=== PATIENT | male | born 1980 | race Caucasian/White ===

== ENCOUNTER 2016-03-03 16:43 | Emergency (ER) | payer OTHER ==
[2016-03-03 16:48] VITALS: BP 161/94
--- NOTE | 2016-03-03 17:13 | ED ---
Throat Pain/Nasal Congestion - HPI Summary HPI Summary: 35M w/ PMH of back pain presents with dental pain for 3 weeks. He has a dental fracture at 12. Today the tooth broke off and exposed the nerve and he has severe pain now. He denies any fever, swelling around the eyes, pain with eye movement, chest pain or SOB. He admits to pain with air movement. He took a tyenlol for his pain without relief. - History of Current Complaint Chief Complaint: EDDentalPain Time Seen by Provider: 03/03/16 16:51 - Allergies/Home Medications Allergies/Adverse Reactions: Allergies Allergy/AdvReac Type Severity Reaction Status Date / Time Prednisone Allergy Vomiting Verified 03/03/16 16:48 Ketorolac Tromethamine AdvReac Intermediate Vomiting Verified 03/03/16 16:48 [From Toradol] Tramadol AdvReac Intermediate Vomiting Verified 03/03/16 16:48 PMH/Surg Hx/FS Hx/Imm Hx Endocrine/Hematology History: Reports: Hx Diabetes Cardiovascular History: Reports: Other Cardiovascular Problems/Disorders - IDDM II Denies: Hx Congestive Heart Failure, Hx Hypertension, Hx Pacemaker/ICD Respiratory History: Reports: Hx Asthma, Hx Sleep Apnea - PER PT. NO WORKUP History: Denies: Hx Renal Disease Musculoskeletal History: Reports: Hx Back Problems, Other Musculoskeletal History - right knee problems Sensory History: Denies: Hx Contacts or Glasses, Hx Hearing Aid Opthamlomology History: Denies: Hx Contacts or Glasses Neurological History: Reports: Other Neuro Impairments/Disorders - LOW BACK PROBLEMS X MANY YEARS Psychiatric History: Denies: Hx Panic Disorder - Surgical History Surgery Procedure, Year, and Place: HX OF BROKEN RIGHT JAW,WIRED SHUT 2012; left shoulder rotator cuff Hx Anesthesia Reactions: No - Immunization History Date of Tetanus Vaccine: Unknown Date of Influenza Vaccine: unknown Infectious Disease History: No Infectious Disease History: Denies: Hx Clostridium Difficile, Hx Hepatitis, Hx Human Immunodeficiency Virus (HIV), Hx of Known/Suspected MRSA, Hx Shingles, Hx Tuberculosis, Hx Known/ Suspected VRE, Hx Known/Suspected VRSA, History Other Infectious Disease, Traveled Outside the [place] in Last 30 Days - Family History Known Family History: Positive: Diabetes, Other - [place] - Social History Alcohol Use: Rare Alcohol Amount: pt reports tonight was first time drinking in a month Hx Substance Use: Yes Substance Use Type: Reports: Marijuana Substance Use Comment - Amount & Last Used: daily Hx Tobacco Use: Yes Smoking Status (MU): Heavy Every Day Tobacco Smoker Type: Cigarettes Amount Used/How Often: 1 ppd Length of Time of Smoking/Using Tobacco: 15 YRS Have You Smoked in the Last Year: Yes Review of Systems Negative: Fever Positive: Dental Pain Negative: Chest Pain Negative: Shortness Of Breath All Other Systems Reviewed And Are Negative: Yes Physical Exam Triage Information Reviewed: Yes Vital Signs On Initial Exam: Initial Vitals Temp Pulse Resp BP Pulse Ox 98.8 F 82 20 161/94 98 03/03/16 16:44 03/03/16 16:44 03/03/16 16:44 03/03/16 16:44 03/03/16 16:44 Vital Signs Reviewed: Yes Appearance: Positive: Well-Appearing Skin: Positive: Warm, Dry Head/Face: Positive: Normal Head/Face Inspection Eyes: Positive: Normal, EOMI, GABRIEL, Conjunctiva Clear ENT: Positive: Normal ENT inspection, Pharynx normal, TMs normal Dental: Positive: Percussion Tenderness @ - 10, Dental Fracture @ - 10 Neck: Positive: Supple, Nontender, No Lymphadenopathy Respiratory/Lung Sounds: Positive: Clear to Auscultation, Breath Sounds Present Cardiovascular: Positive: Normal, RRR Procedures - Procedure Summary Procedure Summary: cleaned tooth, applied topical anaesthesia, placed cement into cracked tooth, tolerated procedure well Diagnostics - Vital Signs Vital Signs Temp Pulse Resp BP Pulse Ox 03/03/16 16:44 98.8 F 82 20 161/94 98 - Laboratory Lab Statement: Any lab studies that have been ordered have been reviewed, and results considered in the medical decision making process. EENT Course/Dx - Course Course Of Treatment: 35 M presents with dental fracture of 10. He had a previous fracture there but today he said a part broke off exposure the nerve. He has no evidence of infection, filled area with cement, placed on course of antibiotics, will have follow up with dentist, patient agrees with plan - Differential Diagnoses Differential Diagnoses: Dental Abscess, Dental Caries, Fractured Tooth - Diagnoses Provider Diagnoses: Pain, dental Discharge - Discharge Plan Condition: Good Disposition: HOME Prescriptions: Penicillin VK TAB* [Penicillin Vk Tab*] 500 mg PO QID #27 tab Patient Education Materials: Toothache (ED) Referrals: Arnol Hall MD [Primary Care Provider] - Additional Instructions: Take antibiotics: 4 times a day for 7 days, first dose given ED Use Tylenol or ibuprofen every 6 hours for pain Avoid hard, crunchy food until seen by dentist Filling is only temporary need to follow up with dentist Return to ED if develop fever, shortness of breath, pain with eye movement or swelling around eye Follow up with dentist
[2016-03-03] MEDS ORDERED: oxyCODONE/Acetamin 5/325 MG* TAB PO ONE (17:26)
[2016-03-03] MEDS ORDERED: Penicillin VK TAB* 250 MG PO ONE (17:40)
== END 2016-03-03 17:59 | disposition home or self-care (01) ==
LOC: ED 16:43
DX: K08.89 Other specified disorders of teeth and supporting structures (principal); M54.9 Dorsalgia, unspecified; F17.210 Nicotine dependence, cigarettes, uncomplicated
CPT/HCPCS: 99282; A9270-GY

== ENCOUNTER 2016-05-14 09:21 | Emergency (ER) | payer OTHER ==
[2016-05-14 10:53] VITALS: BP 167/83
[2016-05-14] MEDS ORDERED: Acetaminophen TAB* 325 MG PO ONE (10:54)
--- NOTE | 2016-05-14 11:46 | RAD ---
Indication: Right testicular pain. Real-time sonography of the scrotum was performed. Comparison is made with previous exam dated January 17, 2016. The right testis measures 4.1 x 2.3 x 2.8 cm. No intratesticular masses are noted. Normal flow is noted in the right testis. The right epididymis measures 8 x 13 mm. No hydrocele is noted. The left testis measures 4.1 x 2.3 x 2.9 cm. No intratesticular masses are noted. Normal flow is noted in the left testis. The epididymis measures 9 x 15 mm. No hydrocele is noted. The previously identified fluid collection superior to the right testis is no longer present. IMPRESSION: Unremarkable scrotal ultrasound.
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
[2016-05-14] MEDS ORDERED: oxyCODONE/Acetamin 5/325 MG* TAB PO ONE (12:24)
== END 2016-05-14 13:07 | disposition home or self-care (01) ==
LOC: ED 09:21
DX: N50.811 Right testicular pain (principal); E11.9 Type 2 diabetes mellitus without complications; J45.909 Unspecified asthma, uncomplicated; I25.10 Atherosclerotic heart disease of native coronary artery without angina pectoris; F17.210 Nicotine dependence, cigarettes, uncomplicated; E66.01 Morbid (severe) obesity due to excess calories; J02.9 Acute pharyngitis, unspecified; Z68.43 Body mass index [BMI] 50.0-59.9, adult
CPT/HCPCS: 76870; 87651; 99282; A9270-GY

== ENCOUNTER 2016-05-22 14:13 | Emergency (ER) | payer OTHER ==
[2016-05-22] MEDS ORDERED: NS 0.9% 1000 ML* 3,000 ML IV ONE (14:23)
[2016-05-22] MEDS ORDERED: Ondansetron INJ* 2 MG/ML VIAL IV ONE ×2 (14:31→15:29)
[2016-05-22 14:45] LABS: Hematocrit 54 % (42-52); Hemoglobin 18.1 g/dl (14.0-18.0); Mean Corpuscular HGB Conc 34 g/dl (31-36); Mean Corpuscular Hemoglobin 30 pg (27-31); Mean Corpuscular Volume 87 fL (80-94); Mean Platelet Volume 9 um3 (7.4-10.4); Red Blood Count 6.12 10^6/ul (4.0-5.4); Red Cell Distribution Width 14 % (10.5-15); White Blood Count 10.4 10^3/ul (3.5-10.8)
[2016-05-22 14:46] LABS: Add Diff/Slide Review? Slide Review Added; Comments Flag Yes
[2016-05-22 14:55] LABS: Urine Bacteria Absent (Absent); Urine Bilirubin Negative (Negative); Urine Glucose Negative (Negative); Urine Nitrite Negative (Negative)
[2016-05-22 15:01] LABS: Albumin 4.3 g/dL (3.2-5.2); BUN/Creatinine Ratio 15.3 (8-20); C Reactive Protein 68.72 mg/L (< 5.00); Calcium 9.3 mg/dL (8.6-10.3); EGFR African American 98.1 (>60); EGFR Non-African American 76.3 (>60); Globulin 4.1 g/dL (2-4); Magnesium 1.8 mg/dL (1.9-2.7); Total Bilirubin 0.5 mg/dL (0.2-1.0); Total Protein 8.4 g/dL (6.4-8.9)
[2016-05-22 15:20] LABS: Potassium 4.2 mmol/L (3.5-5.0)
[2016-05-22] MEDS ORDERED: HYDROmorphone INJ* 1 MG/ML CARPUJECT SYRINGE IV ONE ×2 (15:29→16:02)
[2016-05-22] MEDS ORDERED: Metoclopramide IV* 5 MG/ML 2 ML VIAL IV ONE (16:02)
[2016-05-22 19:05] VITALS: BP 137/81
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
--- NOTE | 2016-05-24 07:41 | ED ---
Juarez Lemon Erika, scribed for Keyur Suarez MD on 05/22/16 at 1439 . GI/ HPI - HPI Summary HPI Summary: Patient is a 35-year-old male presenting to the ED with a CC of nausea, vomiting , and diarrhea for the past 3 days. Patient reports that episodes of diarrhea occur "every 5 minutes" and are watery with some yellow. Symptoms are aggravated by PO intakes - pt has not been able to tolerate any PO intake, including medications. Associated symptoms include abdominal pain, as well as diffuse pain for the past 2 days in which pt states parts of his body "lock up. " Hx diabetes - takes metformin. - History of Current Complaint Chief Complaint: EDNauseaVomitDiarrh Time Seen by Provider: 05/22/16 14:23 Stated Complaint: CHEST PAIN Hx Obtained From: Patient Onset/Duration: Started Days Ago, Atraumatic, Still Present Timing: Constant Severity: Moderate Pain Intensity: 7 Location of Pain: Diffuse Associated Signs and Symptoms: Positive: Nausea, Vomiting, Diarrhea, Change in Appetite, Abdominal Pain, Other: - diffuse pain Aggravating Factor(s): Food, Liquids Alleviating Factor(s): Nothing - Allergy/Home Medications Allergies/Adverse Reactions: Allergies Allergy/AdvReac Type Severity Reaction Status Date / Time Prednisone Allergy Vomiting Verified 05/22/16 14:14 Ketorolac Tromethamine AdvReac Intermediate Vomiting Verified 05/22/16 14:14 [From Toradol] Tramadol AdvReac Intermediate Vomiting Verified 05/22/16 14:14 PMH/Surg Hx/FS Hx/Imm Hx Endocrine/Hematology History: Reports: Hx Diabetes Cardiovascular History: Reports: Other Cardiovascular Problems/Disorders - IDDM II Denies: Hx Congestive Heart Failure, Hx Hypertension, Hx Pacemaker/ICD Respiratory History: Reports: Hx Asthma, Hx Sleep Apnea - PER PT. NO WORKUP History: Denies: Hx Renal Disease Musculoskeletal History: Reports: Hx Back Problems, Other Musculoskeletal History - right knee problems Sensory History: Denies: Hx Contacts or Glasses, Hx Hearing Aid Opthamlomology History: Denies: Hx Contacts or Glasses Neurological History: Reports: Other Neuro Impairments/Disorders - LOW BACK PROBLEMS X MANY YEARS Psychiatric History: Denies: Hx Panic Disorder - Surgical History Surgery Procedure, Year, and Place: HX OF BROKEN RIGHT JAW,WIRED SHUT 2012; left shoulder rotator cuff Hx Anesthesia Reactions: No - Immunization History Date of Tetanus Vaccine: Unknown Date of Influenza Vaccine: unknown Infectious Disease History: No Infectious Disease History: Denies: Hx Clostridium Difficile, Hx Hepatitis, Hx Human Immunodeficiency Virus (HIV), Hx of Known/Suspected MRSA, Hx Shingles, Hx Tuberculosis, Hx Known/ Suspected VRE, Hx Known/Suspected VRSA, History Other Infectious Disease, Traveled Outside the [place] in Last 30 Days - Family History Known Family History: Positive: Diabetes, Other - [place] - Social History Alcohol Use: Rare Alcohol Amount: pt reports tonight was first time drinking in a month Hx Substance Use: Yes Substance Use Type: Reports: Marijuana Substance Use Comment - Amount & Last Used: daily Hx Tobacco Use: Yes Smoking Status (MU): Heavy Every Day Tobacco Smoker Type: Cigarettes Amount Used/How Often: 1 ppd Length of Time of Smoking/Using Tobacco: 15 YRS Have You Smoked in the Last Year: Yes Review of Systems Positive: Abdominal Pain, Vomiting, Diarrhea, Nausea Positive: Myalgia - generalized All Other Systems Reviewed And Are Negative: Yes Physical Exam Triage Information Reviewed: Yes Vital Signs On Initial Exam: Initial Vitals Temp Pulse Resp BP Pulse Ox 96.9 F 114 20 164/88 96 05/22/16 14:14 05/22/16 14:14 05/22/16 14:14 05/22/16 14:14 05/22/16 14:14 Vital Signs Reviewed: Yes Appearance: Positive: Well-Appearing, No Pain Distress Skin: Positive: Warm, Skin Color Reflects Adequate Perfusion, Dry Head/Face: Positive: Normal Head/Face Inspection Eyes: Positive: Normal ENT: Positive: Normal ENT inspection Neck: Positive: Supple, Nontender Respiratory/Lung Sounds: Positive: Clear to Auscultation, Breath Sounds Present Cardiovascular: Positive: Tachycardia - at 114 bpm on triage Abdomen Description: Positive: Soft, Other: - Tender diffusely, more in the LUQ Bowel Sounds: Positive: Present Musculoskeletal: Positive: Normal Neurological: Positive: Normal Psychiatric: Positive: Affect/Mood Appropriate - Ziyad Coma Scale Coma Scale Total: 15 Diagnostics - Vital Signs Vital Signs Temp Pulse Resp BP Pulse Ox 05/22/16 14:14 96.9 F 114 20 164/88 96 - Laboratory Lab Results: Lab Results 05/22/16 05/22/16 05/22/16 Range/Units 14:35 14:35 14:35 WBC 10.4 (3.5-10.8) 10^3/ul RBC 6.12 H (4.0-5.4) 10^6/ul Hgb 18.1 H (14.0-18.0) g/dl Hct 54 H (42-52) % MCV 87 (80-94) fL MCH 30 (27-31) pg MCHC 34 (31-36) g/dl RDW 14 (10.5-15) % Plt Count 217 (150-450) 10^3/ul MPV 9 (7.4-10.4) um3 Neut % (Auto) 81.3 (38-83) % Lymph % (Auto) 8.0 L (25-47) % [place] % (Auto) 9.9 H (1-9) % Eos % (Auto) 0.5 (0-6) % Baso % (Auto) 0.3 (0-2) % Absolute Neuts (auto) 8.5 H (1.5-7.7) 10^3/ul Absolute Lymphs (auto) 0.8 L (1.0-4.8) 10^3/ul Absolute Monos (auto) 1.0 H (0-0.8) 10^3/ul Absolute Eos (auto) 0 (0-0.6) 10^3/ul Absolute Basos (auto) 0 (0-0.2) 10^3/ul Absolute Nucleated RBC 0.01 10^3/ul Nucleated RBC % 0.1 Sodium 131 L (133-145) mmol/L Potassium 4.2 (3.5-5.0) mmol/L Chloride 99 L (101-111) mmol/L Carbon Dioxide 18 L (22-32) mmol/L Anion Gap 14 H (2-11) mmol/L BUN 17 (6-24) mg/dL Creatinine 1.11 (0.67-1.17) mg/dL Est GFR ( Amer) 98.1 (>60) Est GFR (Non-Af Amer) 76.3 (>60) BUN/Creatinine Ratio 15.3 (8-20) Glucose 159 H (70-100) mg/dL Lactic Acid (0.5-2.0) mmol/L Calcium 9.3 (8.6-10.3) mg/dL Magnesium 1.8 L (1.9-2.7) mg/dL Total Bilirubin 0.50 (0.2-1.0) mg/dL AST 28 (13-39) U/L ALT 39 (7-52) U/L Alkaline Phosphatase 66 (34-104) U/L C-Reactive Protein 68.72 H (< 5.00) mg/L Total Protein 8.4 (6.4-8.9) g/dL Albumin 4.3 (3.2-5.2) g/dL Globulin 4.1 H (2-4) g/dL Albumin/Globulin Ratio 1.0 (1-3) Lipase 57 (11.0-82.0) U/L Urine Color Mickie Urine Appearance Clear Urine pH 8.0 (5-9) Ur Specific [place] 1.016 (1.010-1.030) Urine Protein 1+(30 mg/dl) H (Negative) Urine Ketones Negative (Negative) Urine Blood Negative (Negative) Urine Nitrate Negative (Negative) Urine Bilirubin Negative (Negative) Urine Urobilinogen Positive H (Negative) Ur Leukocyte Esterase Negative (Negative) Urine WBC (Auto) Absent (Absent) Urine RBC (Auto) Trace(0-2/hpf) (Absent) Ur Squamous Epith Cells Present H (Absent) Urine Bacteria Absent (Absent) Urine Glucose Negative (Negative) Urine Ascorbic Acid * H (Negative) 05/22/16 Range/Units 14:35 WBC (3.5-10.8) 10^3/ul RBC (4.0-5.4) 10^6/ul Hgb (14.0-18.0) g/dl Hct (42-52) % MCV (80-94) fL MCH (27-31) pg MCHC (31-36) g/dl RDW (10.5-15) % Plt Count (150-450) 10^3/ul MPV (7.4-10.4) um3 Neut % (Auto) (38-83) % Lymph % (Auto) (25-47) % [place] % (Auto) (1-9) % Eos % (Auto) (0-6) % Baso % (Auto) (0-2) % Absolute Neuts (auto) (1.5-7.7) 10^3/ul Absolute Lymphs (auto) (1.0-4.8) 10^3/ul Absolute Monos (auto) (0-0.8) 10^3/ul Absolute Eos (auto) (0-0.6) 10^3/ul Absolute Basos (auto) (0-0.2) 10^3/ul Absolute Nucleated RBC 10^3/ul Nucleated RBC % Sodium (133-145) mmol/L Potassium (3.5-5.0) mmol/L Chloride (101-111) mmol/L Carbon Dioxide (22-32) mmol/L Anion Gap (2-11) mmol/L BUN (6-24) mg/dL Creatinine (0.67-1.17) mg/dL Est GFR ( Amer) (>60) Est GFR (Non-Af Amer) (>60) BUN/Creatinine Ratio (8-20) Glucose (70-100) mg/dL Lactic Acid 1.6 (0.5-2.0) mmol/L Calcium (8.6-10.3) mg/dL Magnesium (1.9-2.7) mg/dL Total Bilirubin (0.2-1.0) mg/dL AST (13-39) U/L ALT (7-52) U/L Alkaline Phosphatase (34-104) U/L C-Reactive Protein (< 5.00) mg/L Total Protein (6.4-8.9) g/dL Albumin (3.2-5.2) g/dL Globulin (2-4) g/dL Albumin/Globulin Ratio (1-3) Lipase (11.0-82.0) U/L Urine Color Urine Appearance Urine pH (5-9) Ur Specific [place] (1.010-1.030) Urine Protein (Negative) Urine Ketones (Negative) Urine Blood (Negative) Urine Nitrate (Negative) Urine Bilirubin (Negative) Urine Urobilinogen (Negative) Ur Leukocyte Esterase (Negative) Urine WBC (Auto) (Absent) Urine RBC (Auto) (Absent) Ur Squamous Epith Cells (Absent) Urine Bacteria (Absent) Urine Glucose (Negative) Urine Ascorbic Acid (Negative) Result Diagrams: 05/22/16 14:35 05/22/16 14:35 Lab Statement: Any lab studies that have been ordered have been reviewed, and results considered in the medical decision making process. - EKG 15:33 Cardiac Rate: Tachycardia - at 101 bpm EKG Rhythm: Sinus Tachycardia Re-Evaluation - Re-Evaluation First Eval Re-Evaluation Time: 15:30 Comment: Patient now complains of chest pain. EKG and pain medication ordered Second Eval Re-Evaluation Time: 16:02 Comment: Patient continues to complain of pain Third Eval Re-Evaluation Time: 18:35 Change: Unchanged Comment: Patient still complains of pain. Fourth Eval Re-Evaluation Time: 18:59 Comment: Patient combative and elopes from the ED GIGU Course/Dx - Course Course Of Treatment: Mr. Ware pesented with complaints of a gastroenteritis nature. He was treated accordingly but did not improve. He is on chronic narcotic pain medications and I was concerned that he had not been able to take them with his illness and was also exhibiting some withdrawal. Narcotics here also did not seem to help and I consulted the hospitalist. - Diagnoses Provider Diagnoses: Gastroenteritis - Physician Notifications Discussed Care Of Patient With: Dr. Klein (hospitalist) at 18:30 - will see patient Discharge - Discharge Plan Condition: Fair Disposition: AGAINST MEDICAL ADVICE Referrals: Arnol Hall MD [Primary Care Provider] - The documentation as recorded by the Juarez bowman Erika accurately reflects the service I personally performed and the decisions made by me, Keyur Suarez MD.
== END 2016-05-22 19:08 | disposition left against medical advice (07) ==
LOC: ED 14:13
DX: K52.9 Noninfective gastroenteritis and colitis, unspecified (principal); R11.2 Nausea with vomiting, unspecified; R19.7 Diarrhea, unspecified; F17.210 Nicotine dependence, cigarettes, uncomplicated
CPT/HCPCS: 36415; 80053; 81003; 81015; 83605; 83690; 83735; 85025; 86140; 93005; 96374; 96375; 99283; J1170; J2405; J2765

== ENCOUNTER 2016-05-23 14:09 | Emergency (ER) | payer OTHER ==
[2016-05-23] MEDS ORDERED: Ondansetron INJ* 2 MG/ML VIAL IV ONE (15:51)
[2016-05-23 16:56] LABS: Hematocrit 50 % (42-52); Hemoglobin 16.7 g/dl (14.0-18.0); Mean Corpuscular HGB Conc 34 g/dl (31-36); Mean Corpuscular Hemoglobin 29 pg (27-31); Mean Corpuscular Volume 88 fL (80-94); Mean Platelet Volume 9 um3 (7.4-10.4); Red Blood Count 5.68 10^6/ul (4.0-5.4); Red Cell Distribution Width 14 % (10.5-15); White Blood Count 6.6 10^3/ul (3.5-10.8)
[2016-05-23 17:18] LABS: Albumin 3.8 g/dL (3.2-5.2); BUN/Creatinine Ratio 15.9 (8-20); C Reactive Protein 47.91 mg/L (< 5.00); Calcium 8.4 mg/dL (8.6-10.3); EGFR African American 128.3 (>60); EGFR Non-African American 99.7 (>60); Globulin 3.7 g/dL (2-4); Potassium 3.6 mmol/L (3.5-5.0); Total Bilirubin 0.4 mg/dL (0.2-1.0); Total Protein 7.5 g/dL (6.4-8.9)
--- NOTE | 2016-05-23 17:39 | ED ---
Abdominal Pain/Male - HPI Summary HPI Summary: Pt presents again today with continued abdominal pain, nausea, vomiting and diarrhea. He describes the diarrhea as yellow and watery and he sometimes cannot control his urge to go - has had an accident on the floor. Was seen yesterday for this issue and was going to be admitted however he reports he had $10,000 in his car and didn't want to leave it there. After speaking with the hospitalist, he opted to leave the ED to get it/lock his car instead of taking an admission to the hospital. He left w/o receiving medications for his symptoms as well. He reports he received IV fluids and nausea medicine yesterday which helped the cramping/pain he's been having. Also received IV dilaudid which per hospitalist note, appears pt could be seeking. Pt denies fever but admits to chills. Denies chest pain, shortness of breath, difficulty breathing. Has unchanged chronic low back pain for which he takes narcotic pain medication. Denies h/o ab surgeries. Has been on antibiotics recently and there was concern for c. diff yesterday. Pt states he left a stool sample yesterday but no orders placed and lab does not have specimen. Will recollect and order today. Per pt, this all started as what he thought was a GI bug as it has been traveling in his family. When asked if he feels bloated, he states "I feel empty ". - History of Current Complaint Chief Complaint: EDNauseaVomitDiarrh Stated Complaint: VOMITING Time Seen by Provider: 05/23/16 16:57 Hx Obtained From: Patient Pain Intensity: 7 - Allergies/Home Medications Allergies/Adverse Reactions: Allergies Allergy/AdvReac Type Severity Reaction Status Date / Time Prednisone Allergy Vomiting Verified 05/22/16 14:14 Ketorolac Tromethamine AdvReac Intermediate Vomiting Verified 05/22/16 14:14 [From Toradol] Tramadol AdvReac Intermediate Vomiting Verified 05/22/16 14:14 PMH/Surg Hx/FS Hx/Imm Hx Previously Healthy: No - persistent N/V/D w/ ab pain Endocrine/Hematology History: Reports: Hx Diabetes Cardiovascular History: Reports: Other Cardiovascular Problems/Disorders - IDDM II Denies: Hx Congestive Heart Failure, Hx Hypertension, Hx Pacemaker/ICD Respiratory History: Reports: Hx Asthma, Hx Sleep Apnea - PER PT. NO WORKUP GI History: Denies: Hx Crohn's Disease, Hx Diverticulosis, Hx Gall Bladder Disease, Hx Gastrointestinal Bleed, Hx Irritable Bowel, Hx Ulcer, Other GI Disorders - hernia History: Denies: Hx Renal Disease Musculoskeletal History: Reports: Hx Back Problems - controlled w/ narcotic pain meds, Other Musculoskeletal History - right knee problems Sensory History: Denies: Hx Contacts or Glasses, Hx Hearing Aid Opthamlomology History: Denies: Hx Contacts or Glasses Neurological History: Reports: Other Neuro Impairments/Disorders - LOW BACK PROBLEMS X MANY YEARS Psychiatric History: Denies: Hx Panic Disorder - Surgical History Surgery Procedure, Year, and Place: HX OF BROKEN RIGHT JAW,WIRED SHUT 2012; left shoulder rotator cuff Hx Anesthesia Reactions: No - Immunization History Date of Tetanus Vaccine: Unknown Date of Influenza Vaccine: unknown Infectious Disease History: No Infectious Disease History: Denies: Hx Clostridium Difficile, Hx Hepatitis, Hx Human Immunodeficiency Virus (HIV), Hx of Known/Suspected MRSA, Hx Shingles, Hx Tuberculosis, Hx Known/ Suspected VRE, Hx Known/Suspected VRSA, History Other Infectious Disease, Traveled Outside the [place] in Last 30 Days - Family History Known Family History: Positive: Diabetes, Other - [place] - Social History Occupation: Employed Full-time Lives: With Family Alcohol Use: Rare Alcohol Amount: pt reports tonight was first time drinking in a month Hx Substance Use: Yes Substance Use Type: Reports: Marijuana Substance Use Comment - Amount & Last Used: daily Hx Tobacco Use: Yes Smoking Status (MU): Current Every Day Smoker Type: Cigarettes Amount Used/How Often: 1 ppd Length of Time of Smoking/Using Tobacco: 15 YRS Have You Smoked in the Last Year: Yes Review of Systems Positive: Chills. Negative: Fever Negative: Sore Throat, Ear Ache, Nasal Discharge Negative: Chest Pain Negative: Shortness Of Breath, Cough Gastrointestinal: Other - see HPI Positive: no symptoms reported Musculoskeletal: Negative Skin: Negative Neurological: Negative Positive: Anxious All Other Systems Reviewed And Are Negative: Yes Physical Exam Triage Information Reviewed: Yes Vital Signs On Initial Exam: Initial Vitals Temp Pulse Resp BP Pulse Ox 96.8 F 92 18 134/80 98 05/23/16 14:10 05/23/16 14:10 05/23/16 14:10 05/23/16 14:10 03/27/17 14:10 Vital Signs Reviewed: Yes Appearance: Positive: Well-Appearing, Pain Distress - intermittently - worse w/ ab exam; anxious, mildly agitated when discussing pain and yesterday's experience, Obese Skin: Positive: Warm, Dry Head/Face: Positive: Normal Head/Face Inspection Eyes: Positive: Normal, EOMI, Conjunctiva Clear - anicteric sclera ENT: Positive: Hearing grossly normal, Pharynx normal - mucosa moist Respiratory/Lung Sounds: Positive: Clear to Auscultation, Breath Sounds Present - distant due to body habitus. Negative: Rales, Rhonchi, Wheezes Cardiovascular: Positive: Normal, RRR Abdomen Description: Positive: Soft, Other: - vast abdominal girth; tenderness throughout - no focal area of pain and no rebounding or referred pain during exam Bowel Sounds: Positive: Present Musculoskeletal: Positive: Normal, Strength/ROM Intact Neurological: Positive: Normal, Sensory/Motor Intact, Alert, Oriented to Person Place, Time, CN Intact II-III Psychiatric: Positive: Anxious Diagnostics - Vital Signs Vital Signs Temp Pulse Resp BP Pulse Ox 05/23/16 16:50 98.4 F 92 20 155/88 100 05/23/16 15:30 98.8 F 95 20 159/92 100 05/23/16 14:10 96.8 F 92 18 134/80 98 - Laboratory Lab Results: Lab Results 05/23/16 05/23/16 Range/Units 16:39 16:39 WBC 6.6 (3.5-10.8) 10^3/ul RBC 5.68 H (4.0-5.4) 10^6/ul Hgb 16.7 (14.0-18.0) g/dl Hct 50 (42-52) % MCV 88 (80-94) fL MCH 29 (27-31) pg MCHC 34 (31-36) g/dl RDW 14 (10.5-15) % Plt Count 173 (150-450) 10^3/ul MPV 9 (7.4-10.4) um3 Neut % (Auto) 63.4 (38-83) % Lymph % (Auto) 21.2 L (25-47) % [place] % (Auto) 14.1 H (1-9) % Eos % (Auto) 0.9 (0-6) % Baso % (Auto) 0.4 (0-2) % Absolute Neuts (auto) 4.2 (1.5-7.7) 10^3/ul Absolute Lymphs (auto) 1.4 (1.0-4.8) 10^3/ul Absolute Monos (auto) 0.9 H (0-0.8) 10^3/ul Absolute Eos (auto) 0.1 (0-0.6) 10^3/ul Absolute Basos (auto) 0 (0-0.2) 10^3/ul Absolute Nucleated RBC 0.01 10^3/ul Nucleated RBC % 0.1 INR (Anticoag Therapy) 0.94 (0.89-1.11) APTT 28.6 (26.0-36.3) seconds Result Diagrams: 05/23/16 16:39 05/23/16 16:39 Lab Statement: Any lab studies that have been ordered have been reviewed, and results considered in the medical decision making process. Re-Evaluation - Re-Evaluation First Eval Change: Unchanged - s/p IVF, zofran 4mg Second Eval Change: Unchanged - s/p hyoscyamine - will provide reglan, morphine and order CT scan ab/pelvis as this was not assessed yesterday Third Eval Change: Unchanged - pt reports his sx are unchanged however he appears more relaxed and is requesting to eat Abdominal Pain Fem Course/Dx - Course Course Of Treatment: Pt presents for a 2nd day w/ ab pain and reports of N/V/D - none witnessed here however a bright yellow discoloration is observed on bedding and pt admits he had to hustle to get to the bathroom d/t bowel urgency. He reports no relief w/ any meds provided here but after talking about his condition (fatty liver) and lack of more concerning issues (ie. obstruction , etc), he is more calm and does not appear to be in as much pain as when he first arrived. He is open and willing to lifestyle changes as he's already working on these w/ a property developer and bariatric team - agrees to discuss new dx w/ property developer for more specific tx plan. Also discussed that he may benefit from a HIDA CCK to asses the function of his gallbladder as this may be causing him pain. Strongly urged and discussed the importance of aoviding fats until this issue is definitively resolved as consuming fats may trigger pain. Pt agrees w/ plan and understands why narcotics are not appropriate tx for ab pain. Tells me he has a h/o addiction and is content to stick with his 5/325mg percocet from PCP to handle daily chronic back pain - does not want to get hooked again. NOTE: pt eating jello and applesauce w/o triggering sx prior to d /c - Diagnoses Provider Diagnoses: Fatty liver, Abdominal pain Discharge - Discharge Plan Condition: Stable Disposition: HOME Prescriptions: Ondansetron ODT TAB* [Zofran 4 MG Odt TAB*] 4 mg PO Q8H PRN #9 tab.odt PRN Reason: Nausea Patient Education Materials: Non-Alcoholic Fatty Liver Disease (ED), Abdominal Pain (ED) Forms: *Work Release Referrals: Arnol Hall MD [Primary Care Provider] - Additional Instructions: Your CT scan does not reveal a life threatening issue in your abdomen or pelvis. However, your liver enzymes are slightly elevated. This may be the result of a fatty liver which was found on CT and ultrasound. This is not a life threatening condition nor one that requires pain medication rather lifestyle changes are in order to help over a period of time. It is important that you avoid fatty foods as well as alcohol and medicines that could make your liver function worse. These include acetaminophen, which is currently in your narcotic pain medication. Follow-up with your PCP this week to discuss treatment options for your fatty liver. You may also benefit from a HIDA CCK to asses the function of your gallbladder. If this is not working correctly, you may need to have it removed. Throughout the process of this work-up, you may eat and drink fat free foods. Consult your property developer tomorrow to ask for specifics to prevent increased pain. *If you develop fever, chills, bloody vomiting or stools and/or intractable vomiting despite following recommendations, return to ED
[2016-05-23] MEDS: NS 0.9% 1000 ML* 2,000 ML IV ONE ×2 (17:44→18:25)
--- NOTE | 2016-05-23 18:37 | RAD ---
HISTORY: Nausea, vomiting, diarrhea COMPARISONS: CT dated September 09, 2015 TECHNIQUE: Multiple transverse and longitudinal ultrasound images were obtained of the right upper quadrant of the abdomen using grayscale and color Doppler imaging. FINDINGS: The study is limited by patient bowel gas and body habitus. LIVER: The liver is diffusely echogenic and coarse in echotexture, with decreased acoustic transmission. The liver is enlarged measuring 20 cm in long axis. There is focal fatty sparing along the gallbladder fossa.. There is normal hepatopedal flow of the portal vein on Doppler imaging. BILIARY TREE: There is no intrahepatic or extrahepatic biliary dilatation. The common duct measures 0.6 cm. GALLBLADDER: The gallbladder is well-visualized. There is no cholelithiasis, gallbladder wall thickening, pericholecystic fluid, or sonographic Olvera sign. PANCREAS: The pancreas is obscured by overlying bowel gas. RIGHT KIDNEY: The right kidney is normal in shape, size, contour, and echogenicity. There is no hydronephrosis or nephrolithiasis. The right kidney measures 13.3 x 6.7 x 5.5 cm. AORTA AND IVC: The aorta and IVC are unremarkable. FLUID: There are no pleural effusions. There is no free fluid within the hepatorenal recess. OTHER FINDINGS: None. IMPRESSION: HEPATOMEGALY WITH FATTY INFILTRATION OF THE LIVER
[2016-05-23] MEDS ORDERED: Hyoscyamine TAB* 0.125 MG PO ONE (18:50)
[2016-05-23] MEDS ORDERED: Morphine INJ* 4 MG/ML 1 ML SYRINGE IV ONE (20:06)
[2016-05-23] MEDS ORDERED: Metoclopramide IV* 5 MG/ML 2 ML VIAL IV ONE (20:06)
[2016-05-23 20:53] LABS: Urine Bacteria Absent (Absent); Urine Bilirubin Negative (Negative); Urine Glucose Negative (Negative); Urine Nitrite Negative (Negative)
[2016-05-23] MEDS ORDERED: Iodixanol* (CONTRAST) 320 MG/ML 100 ML SDV IV ONE (21:22)
--- NOTE | 2016-05-23 22:13 | RAD ---
CLINICAL HISTORY: Abdominal pain, nausea vomiting and diarrhea COMPARISON: September 09, 2015 TECHNIQUE: Multiple contiguous axial CT scans were obtained of the abdomen and pelvis after the administration of intravenous contrast. Coronal and sagittal multiplanar reformations are submitted for review. Oral contrast was administered. Delayed images were obtained through the abdomen and pelvis. FINDINGS: LUNG BASES: The lung bases are clear. LIVER: The liver is diffusely low in attenuation compared to the spleen. There are no focal hepatic parenchymal masses. BILE DUCTS: There is no intrahepatic or extrahepatic biliary dilatation. GALLBLADDER: The gallbladder is normal, without pericholecystic inflammatory change. PANCREAS: The pancreas is normal, without mass or ductal dilatation. SPLEEN: Normal in size and appearance. UPPER GI TRACT: Evaluation of the gastrointestinal tract is limited by incomplete gastric distention. The upper GI tract is unremarkable. SMALL BOWEL AND MESENTERY: The small bowel is normal in contour, course, and caliber. There is no obstruction or dilatation. COLON: There is scattered diverticula of the distal colon. There is a tubular, vermiform, hollow viscus that is blind ending, and originates from the cecum, consistent with a normal appendix. There is no periappendiceal inflammatory change. ADRENALS: Normal bilaterally. KIDNEYS: The kidneys are normal in shape, size, contour, and axis. There is no hydronephrosis or nephrolithiasis. BLADDER: The bladder is smooth in contour. PELVIC ORGANS: The prostate gland is normal. The seminal vesicles are symmetric. AORTA: The aorta is normal. IVC: Unremarkable LYMPH NODES: There is no lymphadenopathy by size criteria. ABDOMINAL WALL: There is no evidence for abdominal wall hernia. BONES AND SOFT TISSUES: Unremarkable OTHER: None IMPRESSION: 1. NO OBSTRUCTION. 2. FATTY INFILTRATION OF THE LIVER. 3. SCATTERED DIVERTICULA OF THE COLON
[2016-05-23 23:10] VITALS: BP 144/65
== END 2016-05-23 23:10 | disposition home or self-care (01) ==
LOC: ED 14:09
DX: K76.0 Fatty (change of) liver, not elsewhere classified (principal); R10.9 Unspecified abdominal pain; F41.9 Anxiety disorder, unspecified; R68.83 Chills (without fever)
CPT/HCPCS: 36415; 74177; 76705; 80053; 81003; 81015; 83605; 83690; 83735; 85025; 85610; 85730; 86140; 87045; 87046; 87077; 87493; 87899; 99282; A9270-GY; J2270; J2405; Q9967

== ENCOUNTER 2016-06-13 06:34 | Emergency (ER) | payer OTHER ==
[2016-06-13] MEDS ORDERED: Ketorolac INJ* 30 MG/ML 1 ML VIAL IM ONE (07:19)
[2016-06-13] MEDS ORDERED: Ondansetron ODT TAB* 4 MG PO ONE (07:20)
[2016-06-13 07:57] LABS: Hematocrit 45 % (42-52); Mean Corpuscular HGB Conc 34 g/dl (31-36); Mean Corpuscular Hemoglobin 30 pg (27-31); Mean Corpuscular Volume 88 fL (80-94); Mean Platelet Volume 9 um3 (7.4-10.4); Red Blood Count 5.09 10^6/ul (4.0-5.4); Red Cell Distribution Width 14 % (10.5-15); White Blood Count 10.1 10^3/ul (3.5-10.8)
[2016-06-13 08:09] LABS: Albumin 3.7 g/dL (3.2-5.2); BUN/Creatinine Ratio 17.7 (8-20); Calcium 8.7 mg/dL (8.6-10.3); EGFR African American 192.1 (>60); EGFR Non-African American 149.4 (>60); Globulin 3.2 g/dL (2-4); Potassium 4.3 mmol/L (3.5-5.0); Total Bilirubin 0.4 mg/dL (0.2-1.0); Total Protein 6.9 g/dL (6.4-8.9)
--- NOTE | 2016-06-13 09:07 | RAD ---
Indication: Abscess right scrotum. Real-time sonography of the scrotum was performed. The right testis measures 3.8 x 2.3 x 2.7 cm. No intratesticular masses are noted. Normal flow is noted in the right testis. The epididymis measures 12 x 10 mm. No hydrocele is noted. In the lateral right hemiscrotum there is a 3.0 x 1.5 x 1.8 cm irregular hypoechoic mass which is extratesticular in location with echogenic material within it. The possibility of an abscess should BE considered. The left testis measures 4.1 x 2.2 x 2.6 cm. No intratesticular masses are noted. Normal flow is noted in the left testis. Left epididymis measures 10 x 15 mm. No hydrocele is noted. IMPRESSION: In the right scrotum echo complex hypoechoic mass measures 3.0 x 1.5 x 1.8 cm which may represent an abscess. No intratesticular masses are noted.
[2016-06-13] MEDS ORDERED: cefTRIAXone(*) 1 GM in NS 0.9% 50 ML* 50 ML IVPB ONE (09:45)
[2016-06-13] MEDS ORDERED: metroNIDAZOLE TAB* 250 MG PO ONE (09:46)
[2016-06-13 11:30] VITALS: BP 151/84
--- NOTE | 2016-06-13 20:49 | CONS ---
CONSULTATION NOTE: DATE OF CONSULTATION: 06/13/16 HISTORY OF PRESENT ILLNESS: I was asked by the emergency room service to see this 35-year-old white male because of right scrotal abscess. Mr. Ware reports that for the last year, he has been having on and off swelling of the right scrotum. The swelling often times results in spontaneous purulent drainage with resolution of his symptoms, but the condition would recur later. The patient presented to the emergency room with increasing pain Rt scrotal pain. He did not have any fever or chills. While in the emergency room, he drained a fair amount of purulent fluid from the right scrotal wall. Culture was sent for aerobic and anaerobic cultures. A consultation is being obtained. The patient had a scrotal ultrasound which showed normal testes and a 3 cm suspicious abscess in the Rt scrotal wall. There was no air noted. PAST MEDICAL HISTORY AND SYSTEM REVIEW: The patient is morbidly obese and is a poorly controlled diabetic. He denies any voiding symptoms. ALLERGIES: He reports being allergic to PREDNISONE, TRAMADOL, KETALAR. PHYSICAL EXAMINATION: On examination, he is a morbidly obese white male, who is lying comfortably on the stretcher. Exam of the genitalia shows normal testes bilaterally without any intrascrotal masses or tenderness. There is a firm tender area in the right scrotal wall inferiorly and closer to the groin area, measuring 2 to 3 cm in size. There is no evidence of cellulitis , no crepitation. I could not feel any fluctuation. The rest of his examination was normal. IMPRESSION: Scrotal wall abscess that spontaneously drained in the emergency room in a morbidly obese, poorly controlled diabetic. PLAN: The patient received IV Rocephin and p.o. Flagyl in the emergency room. He will be discharged home on Bactrim DS twice a day and he was advised to have sitz baths 3 times per day. He will be seen in the office for follow-up. If the scrotal wall mass becomes fluctuant and does not resolve, he might need incision and drainage. CC: Dr. Hall* [id number]/[facility] #: [id number] MTDD
--- NOTE | 2016-06-13 22:13 | ED ---
alden Lemon Timothy, scribed for Windy Haro MD on 06/13/16 at 0730 . GI/ HPI - HPI Summary HPI Summary: Conor Ware is a 35 yo male presenting to [facility] with an pain and swelling of his right scrotum, currently draining spontaneously, since yesterday causing him 5/10 pain, increased to 10/10 pain upon arrival to [facility]. Pt states he has had scrotal abscesses in the past. Pt is also slurring his words in room, states he is tired and took gabapentin prior to coming to ED. Pt has a Hx of similar Sx. He currently takes 800 mg gabapentin for his chronic back pain, and is allergic to toradol/tramadol. States he is in drug court now, and romero not want narcotics. He denies any Hx of MRSA, as well as abd pain and other urinary symptoms. His MHx includes chronic back pain, SC, IDDM, asthma, and tobacco use. - History of Current Complaint Chief Complaint: EDUrogenitalProblems Time Seen by Provider: 06/13/16 07:20 Stated Complaint: RIGHT SIDED TESTICLE PAIN Hx Obtained From: Patient, Medical Records Onset/Duration: Started Days Ago, Still Present Timing: Constant Severity: Moderate Current Severity: Moderate Pain Intensity: 10 Additional Locations for Males: Scrotum, Testicles - right testicle Pain Characteristics: Sharp Associated Signs and Symptoms: Positive: Other: - drainage, word slurring Aggravating Factor(s): Nothing Alleviating Factor(s): Nothing - Allergy/Home Medications Allergies/Adverse Reactions: Allergies Allergy/AdvReac Type Severity Reaction Status Date / Time Prednisone Allergy Vomiting Verified 06/13/16 06:46 Ketorolac Tromethamine AdvReac Intermediate Vomiting Verified 06/13/16 06:46 [From Toradol] Tramadol AdvReac Intermediate Vomiting Verified 06/13/16 06:46 PMH/Surg Hx/FS Hx/Imm Hx Endocrine/Hematology History: Reports: Hx Diabetes Cardiovascular History: Denies: Hx Congestive Heart Failure, Hx Hypertension, Hx Pacemaker/ICD Respiratory History: Reports: Hx Asthma, Hx Sleep Apnea - PER PT. NO WORKUP GI History: Denies: Hx Crohn's Disease, Hx Diverticulosis, Hx Gall Bladder Disease, Hx Gastrointestinal Bleed, Hx Irritable Bowel, Hx Ulcer, Other GI Disorders - hernia History: Denies: Hx Renal Disease Musculoskeletal History: Reports: Hx Back Problems - controlled w/ narcotic pain meds, Other Musculoskeletal History - right knee problems Sensory History: Denies: Hx Contacts or Glasses, Hx Hearing Aid Opthamlomology History: Denies: Hx Contacts or Glasses Neurological History: Reports: Other Neuro Impairments/Disorders - LOW BACK PROBLEMS X MANY YEARS Psychiatric History: Denies: Hx Panic Disorder - Surgical History Surgery Procedure, Year, and Place: HX OF BROKEN RIGHT JAW,WIRED SHUT 2012; left shoulder rotator cuff Hx Anesthesia Reactions: No - Immunization History Date of Tetanus Vaccine: Unknown Date of Influenza Vaccine: unknown Infectious Disease History: No Infectious Disease History: Denies: Hx Clostridium Difficile, Hx Hepatitis, Hx Human Immunodeficiency Virus (HIV), Hx of Known/Suspected MRSA, Hx Shingles, Hx Tuberculosis, Hx Known/ Suspected VRE, Hx Known/Suspected VRSA, History Other Infectious Disease, Traveled Outside the [place] in Last 30 Days - Family History Known Family History: Positive: Diabetes, Other - [place] Negative: Cardiac Disease, Hypertension - Social History Alcohol Use: Rare Alcohol Amount: pt reports tonight was first time drinking in a month Hx Substance Use: Yes Substance Use Type: Reports: Marijuana Substance Use Comment - Amount & Last Used: daily Hx Tobacco Use: Yes Smoking Status (MU): Current Every Day Smoker Type: Cigarettes Amount Used/How Often: 1 ppd Length of Time of Smoking/Using Tobacco: 15 YRS Have You Smoked in the Last Year: Yes Review of Systems Constitutional: Negative Eyes: Negative ENT: Negative Cardiovascular: Negative Respiratory: Negative Gastrointestinal: Negative Positive: discharge, pain - right testicle and scrotum . Negative: burning, dysuria Musculoskeletal: Negative Skin: Negative Positive: Slurred Speech Psychological: Normal All Other Systems Reviewed And Are Negative: Yes Physical Exam Triage Information Reviewed: Yes Vital Signs On Initial Exam: Initial Vitals Temp Pulse Resp BP Pulse Ox 97.6 F 100 18 158/94 98 06/13/16 06:41 06/13/16 06:41 06/13/16 06:41 06/13/16 06:41 06/13/16 06:41 Vital Signs Reviewed: Yes Appearance: Positive: Well-Appearing, Well-Nourished, Pain Distress Skin: Positive: Warm, Skin Color Reflects Adequate Perfusion, Dry, Other - draining right scrotal abscess Head/Face: Positive: Normal Head/Face Inspection Eyes: Positive: EOMI, Conjunctiva Clear ENT: Positive: Normal ENT inspection Neck: Positive: Supple, Nontender Respiratory/Lung Sounds: Positive: Clear to Auscultation, Breath Sounds Present Cardiovascular: Positive: RRR, Pulses are Symmetrical in both Upper and Lower Extremities. Negative: Murmur, Rub, Other - gallop Abdomen Description: Positive: Nontender, Soft Bowel Sounds: Positive: Present Male Genital Exam: Positive: scrotum tenderness (R), other - drainage of blood and pus from right scrotum Musculoskeletal: Positive: Strength/ROM Intact Neurological: Positive: Sensory/Motor Intact, Alert, Oriented to Person Place, Time, CN Intact II-III, Slurred Speech. Negative: Focal Deficit @ Psychiatric: Positive: Normal, Affect/Mood Appropriate - [place] Coma Scale Coma Scale Total: 15 Diagnostics - Vital Signs Vital Signs Temp Pulse Resp BP Pulse Ox 06/13/16 06:41 97.6 F 100 18 158/94 98 - Laboratory Lab Results: Lab Results 06/13/16 06/13/16 Range/Units 07:40 07:40 WBC 10.1 (3.5-10.8) 10^3/ul RBC 5.09 (4.0-5.4) 10^6/ul Hgb 15.0 (14.0-18.0) g/dl Hct 45 (42-52) % MCV 88 (80-94) fL MCH 30 (27-31) pg MCHC 34 (31-36) g/dl RDW 14 (10.5-15) % Plt Count 171 (150-450) 10^3/ul MPV 9 (7.4-10.4) um3 Neut % (Auto) 72.9 (38-83) % Lymph % (Auto) 16.4 L (25-47) % [place] % (Auto) 7.7 (1-9) % Eos % (Auto) 2.2 (0-6) % Baso % (Auto) 0.8 (0-2) % Absolute Neuts (auto) 7.4 (1.5-7.7) 10^3/ul Absolute Lymphs (auto) 1.7 (1.0-4.8) 10^3/ul Absolute Monos (auto) 0.8 (0-0.8) 10^3/ul Absolute Eos (auto) 0.2 (0-0.6) 10^3/ul Absolute Basos (auto) 0.1 (0-0.2) 10^3/ul Absolute Nucleated RBC 0.01 10^3/ul Nucleated RBC % 0.1 Sodium 131 L (133-145) mmol/L Potassium 4.3 (3.5-5.0) mmol/L Chloride 99 L (101-111) mmol/L Carbon Dioxide 29 (22-32) mmol/L Anion Gap 3 (2-11) mmol/L BUN 11 (6-24) mg/dL Creatinine 0.62 L (0.67-1.17) mg/dL Est GFR ( Amer) 192.1 (>60) Est GFR (Non-Af Amer) 149.4 (>60) BUN/Creatinine Ratio 17.7 (8-20) Glucose 254 H (70-100) mg/dL Calcium 8.7 (8.6-10.3) mg/dL Total Bilirubin 0.40 (0.2-1.0) mg/dL AST 13 (13-39) U/L ALT 22 (7-52) U/L Alkaline Phosphatase 62 (34-104) U/L Total Protein 6.9 (6.4-8.9) g/dL Albumin 3.7 (3.2-5.2) g/dL Globulin 3.2 (2-4) g/dL Albumin/Globulin Ratio 1.2 (1-3) Result Diagrams: 06/13/16 07:40 06/13/16 07:40 Lab Statement: Any lab studies that have been ordered have been reviewed, and results considered in the medical decision making process. - Ultrasound No standard instances Ultrasound Interpretation: Positive (See Comments) - IMPRESSION: In the right scrotum echo complex hypoechoic mass measures 3.0 x 1.5 x 1.8 cm which may represent an abscess. No intratesticular masses are noted. Ultrasound Interpretation Completed By: Radiologist Re-Evaluation - Re-Evaluation First Eval Re-Evaluation Time: 11:49 Change: Improved Comment: Slurred speech resolved after sleeping in ED. No focal deficits. Pt was informed of results of imaging and lab studies, as well as recommendations made by Dr. Khalil. GIGU Course/Dx - Course Assessment/Plan: Conor Ware is a 35 yo male presenting to [facility] with an abscess on his right scrotum, currently draining, causing him 10/10 pain. In the ED he was given toradol for pain, and zofran to counter his negative reaction to toradol. His testicular US suggested an abscess. His culture was negative for MRSA. Per Dr. Khalil's recommendation Pt was administered ceftriaxone and flagyl in ED. After clinical examination and review of his imaging studies and lab work, as well as discussion with Dr. Khalil, he will be discharged home with scrotal wall abscess on oral Bactrim and appropriate instructions. - Diagnoses Differential Diagnoses - Male: Sepsis, STD, Other - Abril's gangrene, abscess Provider Diagnoses: Scrotal wall abscess - Physician Notifications Discussed Care Of Patient With: 0935 - Dr. Khalil (urology) - consult call attempted, awaiting response. 0941 - Dr. Khalil (urology) - consult call returned. Discussed Pt condition, recommends administration of ceftriaxone and flagyl. He will review the testicular US. 1105 - Dr. Khalil (urology) - discussed Pt condition, recommends discharge with Rx for bactrim and follow up. Discharge - Discharge Plan Condition: Stable Disposition: HOME Prescriptions: Sulfamethox/Trimethoprim DS* [Bactrim DS 800/160 TAB*] 1 tab PO BID #20 tab Patient Education Materials: Abscess (ED) Referrals: Arnol Hall MD [Primary Care Provider] - Shakeel Khalil MD [Medical Doctor] - 2 Days Additional Instructions: Do Sitz baths 3 times a day. Take acetaminophen or the gabapentin that you have at home for pain. Please follow up with Dr. Khalil regarding your visit to the emergency department today. Return to the emergency department with any new or recurring symptoms. The documentation as recorded by the alden bowman Timothy accurately reflects the service I personally performed and the decisions made by , Windy Haro MD.
== END 2016-06-13 12:01 | disposition home or self-care (01) ==
LOC: ED 06:34
DX: N49.2 Inflammatory disorders of scrotum (principal); F17.210 Nicotine dependence, cigarettes, uncomplicated; E11.9 Type 2 diabetes mellitus without complications; G89.29 Other chronic pain; M54.9 Dorsalgia, unspecified; J45.909 Unspecified asthma, uncomplicated; I25.2 Old myocardial infarction; E66.01 Morbid (severe) obesity due to excess calories
CPT/HCPCS: 36415; 76870; 80053; 85025; 87070; 87205; 87640; 87641; 96360; 96372; 99283; A9270-GY; J0696; J1885

== ENCOUNTER 2016-06-19 21:06 | Observation (INO) | payer OTHER ==
[2016-06-19] MEDS ORDERED: Aspirin Low Dose CHEW TAB* 81 MG PO ONE (21:30)
[2016-06-19] MEDS ORDERED: NS 0.9% 1000 ML* 2,000 ML IV ONE (21:30)
[2016-06-19 21:39] LABS: Hematocrit 48 % (42-52); Hemoglobin 16.5 g/dl (14.0-18.0); Mean Corpuscular HGB Conc 34 g/dl (31-36); Mean Corpuscular Hemoglobin 30 pg (27-31); Mean Corpuscular Volume 87 fL (80-94); Mean Platelet Volume 8 um3 (7.4-10.4); Red Blood Count 5.52 10^6/ul (4.0-5.4); Red Cell Distribution Width 14 % (10.5-15); White Blood Count 10.2 10^3/ul (3.5-10.8)
[2016-06-19 21:52] LABS: Albumin 3.8 g/dL (3.2-5.2); C Reactive Protein 13.94 mg/L (< 5.00); Calcium 9.1 mg/dL (8.6-10.3); EGFR African American 143.2 (>60); EGFR Non-African American 111.3 (>60); Globulin 3.5 g/dL (2-4); Magnesium 1.9 mg/dL (1.9-2.7); Total Bilirubin 0.3 mg/dL (0.2-1.0); Total Protein 7.3 g/dL (6.4-8.9)
[2016-06-19 21:54] LABS: Troponin I 0.01 ng/mL (<0.04)
[2016-06-19 22:05] LABS: TSH (Thyroid Stimulating Horm) 4.33 mcIU/mL (0.34-5.60)
[2016-06-19 22:15] LABS: Potassium 4.4 mmol/L (3.5-5.0)
--- NOTE | 2016-06-19 22:25 | RAD ---
Indication: Chest pain. Single frontal view of the chest performed at 2145 hours was reviewed. Comparison is made with previous exam dated February 14, 2016. No mediastinal shift is noted. Heart is of normal size and configuration. Lung manning appear clear. IMPRESSION: NO ACTIVE CARDIOPULMONARY DISEASE IS NOTED.
[2016-06-19] MEDS ORDERED: Nitroglycerin TAB 0.4 MG* 0.4 MG TAB SL ONE (22:53)
[2016-06-19] MEDS ORDERED: Iodixanol* (CONTRAST) 320 MG/ML 100 ML SDV IV ONE (23:18)
[2016-06-19 23:30] LABS: Urine Bacteria Absent (Absent); Urine Bilirubin Negative (Negative); Urine Glucose Negative (Negative); Urine Nitrite Negative (Negative)
[2016-06-20] MEDS ORDERED: Acetaminophen TAB* 325 MG PO PRN (00:43)
[2016-06-20] MEDS ORDERED: Dextrose 50% Syringe 50 ML* 25 GM/50 ML SYRINGE IV PUSH PRN (00:45)
[2016-06-20 01:22] VITALS: BP 126/108
--- NOTE | 2016-06-20 02:54 | PN ---
Progress Note - Progress Note Note: Patient left AMA and became verbally abusive to the staff. When the Nurse said he could not get a medicaid taxi because he left AMA, He then told the nurse " I hope my heart explodes then you bitches will get yours." He said this while lighting a cigarette.
[2016-06-20] MEDS ORDERED: Insulin LISPRO* 1 UNITS UNIT SUBCUT SCH (06:00)
[2016-06-20] MEDS ORDERED: Heparin VIAL(*) 5000 UNITS/ML VIAL (FIVE THOUSAND) SUBCUT SCH (06:00)
--- NOTE | 2016-06-20 07:56 | RAD ---
INDICATION: Chest pain. Short of breath. Evaluate for pulmonary embolus. COMPARISON: CTA chest September 09, 2015 TECHNIQUE: Axial source images were obtained from the thoracic inlet to the hemidiaphragms following administration of 99 mL Visipaque [address] angiographic technique was utilized. Coronal and sagittal reconstructed images were acquired. CHEST FINDINGS: Neck/thyroid: The visualized neck to include the thyroid appear normal. Chest wall: There are no acute abnormalities of the bony thorax or chest wall. There is no supraclavicular, infraclavicular, or axillary lymphadenopathy. Lungs : There are no pulmonary parenchymal masses or infiltrates. The pulmonary interstitium appears normal. There are no endobronchial lesions. Cardiomediastinal structures: There is no CT evidence of acute pulmonary embolic disease. The heart is normal in size. There is no pericardial effusion. There is no evidence of aortic aneurysm or dissection. There is no mediastinal or hilar adenopathy. The esophagus appears normal. Pleura : There are no pleural-based masses or effusions. Other: There is hepatomegaly with hepatic steatosis. IMPRESSION: NO CT EVIDENCE OF ACUTE PULMONARY EMBOLIC DISEASE. LUNGS CLEAR.
--- NOTE | 2016-06-20 12:34 | HP ---
HISTORY AND PHYSICAL: DATE OF ADMISSION: 06/20/16 CHIEF COMPLAINT: Chest pain. HISTORY OF PRESENT ILLNESS: The patient is a 35-year-old gentleman who presents to [facility] with chief complaint of chest pain that started 45 minutes before he arrived to the hospital. Pain was all over his chest and sharp. It was 8/10 in severity. He was not exerting himself. He had no nausea or vomiting, but he was short of breath and sweating and had palpitations. He still has some pain. It does not increase with physical activity. He states he has not had this before. PAST MEDICAL HISTORY: Significant for: 1. Diabetes mellitus. 2. Obstructive sleep apnea. 3. Morbid obesity. CURRENT MEDICATIONS: 1. Gabapentin 800 mg 3 times a day. 2. Advair Diskus 250/50 one puff twice daily. 3. Zofran 4 mg every 8 hours as needed. 4. Metformin 500 mg twice daily. 5. Bactrim double strength 1 tablet twice daily. ALLERGIES: Allergy/adverse reaction to PREDNISONE, KETORALAC, and TRAMADOL. FAMILY HISTORY: Mother is alive and well. Father is alive and well. SOCIAL HISTORY: Smokes one and a half packs a day over 20 years. No alcohol or recreational drug use. He is on disability. He is not . He has 3 children. REVIEW OF SYSTEMS: A 14-point review of systems is completed with the patient. All pertinent positives and negatives are in the history of present illness, otherwise it is negative. PHYSICAL EXAMINATION GENERAL: A gentleman lying in bed, in no acute distress. VITAL SIGNS: Blood pressure 126/108, respiratory rate 39 breaths per minute, heart rate 82 beats per minute, temperature is 98 degrees. HEENT: Normocephalic and atraumatic. Pupils are equal, round and reactive to light. Moist mucous membranes. NECK: Supple. No JVD, bruits, palpable thyroid or lymphadenopathy. CHEST: Clear to auscultation and percussion bilaterally. CARDIOVASCULAR: S1, S2 appreciated. Regular rate and rhythm. ABDOMEN: Positive bowel sounds in all 4 quadrants. Soft, nontender, and nondistended. EXTREMITIES: No cyanosis, clubbing, or edema, +2 peripheral pulses bilaterally. NEUROLOGIC: Alert and oriented x3. Moves all extremities. SKIN: No rashes or abnormalities. LABORATORY DATA: White count 10.2, hemoglobin 16.5, hematocrit 48, platelets 224. Sodium 133, potassium 4.4, chloride 102, CO2 23, BUN 12, creatinine 0.80, glucose 194, lactic acid 2.2, INR is 0.82. Urinalysis: Granular casts. EKG shows normal sinus rhythm at 95 beats per minute, normal axis, no acute ST- T wave changes. Chest x-ray was interpreted by Radiology as no active cardiopulmonary disease. CTA, preliminary findings, show no PE. ASSESSMENT AND PLAN: 1. Chest pain. The patient certainly with risk factors with diabetes and smoking. We will admit to the hospital. Cycle troponins. Check lipid profile and get nuclear stress test if negative in a.m. 2. Diabetes mellitus. Hold metformin. Fingersticks with sliding scale insulin. 3. Obstructive sleep apnea. The patient has BiPAP at home. 4. FEN. N.p.o., awaiting studies. 5. DVT prophylaxis. Heparin subcu. 6. The patient is a full code. TIME SPENT: Over 75 minutes were spent on this H and P, more than 40 minutes of which was spent in direct [id number] contact with the patient in evaluation , physical exam, counseling and coordination of care. CC: Dr. Hall * [id number]/[facility] #: [id number] MTDIsabela
--- NOTE | 2016-06-21 00:31 | DS ---
DISCHARGE SUMMARY: DATE OF ADMISSION: 06/20/16 DATE OF DISCHARGE: 06/20/16 ADMISSION DIAGNOSIS: Chest pain. SECONDARY DIAGNOSES: 1. Diabetes mellitus. 2. Obstructive sleep apnea. DISCHARGE DIAGNOSES: 1. Chest pain. 2. Diabetes mellitus. 3. Obstructive sleep apnea. HOSPITAL COURSE: The patient was admitted to the hospital with chest pain and to rule out a myocardial infarction and if negative, to get a stress test to determine if there is any evidence of coronary artery disease. Unfortunately, in the middle of the night the patient said he could no longer wait, became angry and anxious and left against medical advice despite the fact that he was told that he could if indeed he gets coronary artery disease. He became verbally abusive to the nurses and staff and left. CC: Dr. Hall* [id number]/[facility] #: [id number] MTDIsabela
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
== END 2016-06-20 02:35 | disposition left against medical advice (07) ==
LOC: ED 21:06 → MEDTELE 06-20 00:45
PROVIDERS: ADMIT Internal Medicine; ATTEND Internal Medicine
DX: R07.9 Chest pain, unspecified (principal); R06.02 Shortness of breath; E11.9 Type 2 diabetes mellitus without complications; G47.33 Obstructive sleep apnea (adult) (pediatric); R94.31 Abnormal electrocardiogram [ECG] [EKG]; Z88.8 Allergy status to other drugs, medicaments and biological substances; F17.210 Nicotine dependence, cigarettes, uncomplicated; Z79.899 Other long term (current) drug therapy; Z79.84 Long term (current) use of oral hypoglycemic drugs
CPT/HCPCS: 36415; 71010; 71275; 80053; 81003; 81015; 82550; 82553; 83605; 83690; 83735; 83880; 84443; 84484; 85025; 85379; 85610; 85730; 86140; 93005; 99284; A9270-GY; G0378; Q9967

== ENCOUNTER 2016-07-09 05:47 | Emergency (ER) | payer OTHER ==
[2016-07-09 06:04] VITALS: BP 0/0
--- NOTE | 2016-07-09 06:10 | ED ---
Rigo Lemon Billy, scribed for Clemente Jeff MD on 07/09/16 at 0607 . Cardiac Resuscitation - HPI Summary HPI Summary: Patient is a 35 year-old male with a history of DM and sleep apnea coming to [facility] for cardiac resuscitation. He was found on the couch by another resident at his home unresponsive. He was asystolic by the time of EMS arrival at approximately 0440 today. Patient was given 5x epi, bicarb, calcium, and narcan. Per EMS, he was last seen alive last night. There was no known drug use last night. There was a significant amount of alcohol seen on site but no drug paraphernalia seen. - History of Current Complaint Chief Complaint: EDCardiacArrest Stated Complaint: CARDIAC ARREST Time Seen by Provider: 07/09/16 05:56 Hx Obtained From: EMS Hx From Patient Unobtainable Due To: Extremis Onset/Duration: Unknown Arrest Witnessed: No Down-time Before Basic Life Support Initiated: Unknown Down-time Before Advanced Life Support Initiated: Unknown - Prehospital Findings Airway: Gag Reflex Absent Breathing: Apnea Circulation/Rhythm: Asystole Disability/Neurologic: Unresponsive - Allergies/Home Medications Allergies/Adverse Reactions: Allergies Allergy/AdvReac Type Severity Reaction Status Date / Time Prednisone Allergy Vomiting Verified 06/19/16 22:11 Ketorolac Tromethamine AdvReac Intermediate Vomiting Verified 06/19/16 22:11 [From Toradol] Tramadol AdvReac Intermediate Vomiting Verified 06/19/16 22:11 - Past Medical History Past Medical History: Unobtainable Due to Extremis - Family History Family History: Unobtainable Due to Extremis - Social History Social History: Unobtainable Due to Extremis - Review of Systems Review of Systems: Unobtainable Due to Extremis Physical Examination - Physical Examination Completion Of Physical Exam Limited Due To: Extremis Resuscitation Termination Time: 05:52 Resuscitation: Unsuccessful - ED Findings Airway: Gag Reflex Absent Breathing: Apnea Circulation/Rhythm: Asystole Disability/Neurological: Unresponsive - ED Response Breathing: ETT in Airway:, Placement Confirmed by Auscultation Circulation/Rhythm: Asystole - Glascow Coma Score Eye Openin - None Motor: 1 - None Verbal: 1 - Intubated Coma Scale Total: 3 T Diagnostics - Vital Signs Vital Signs Temp Pulse Resp BP Pulse Ox 07/09/16 05:56 95 F 0 0 0/0 0 - Laboratory Lab Statement: Any lab studies that have been ordered have been reviewed, and results considered in the medical decision making process. Re-Evaluation - Re-Evaluation First Eval Comment: resuscitation efforts unsuccersful, pt pronounced Cardiac Resus. Course/Dx - Diagnoses Provider Diagnoses: Cardiac arrest Discharge - Discharge Plan Condition: Disposition: Referrals: Arnol Hall MD [Primary Care Provider] - The documentation as recorded by the Rigo bowman Billy accurately reflects the service I personally performed and the decisions made by me, Clemente Jeff MD.
--- NOTE | 2016-07-10 14:39 | PN ---
Jayda Lemon SooYoung, scribed for Vidal Monae MD on 07/09/16 at 0823 . Progress Note - Progress Note Note: [id number]: Spoke to Dr. Lara. billet examiner contacted, recommended holding pt at [facility] for further investigation. The documentation as recorded by the scribJayda gibbons SooYoung accurately reflects the service I personally performed and the decisions made by , Vidal Monae MD.
== END 2016-07-09 07:17 | disposition expired ==
LOC: ED 05:47
DX: I46.9 Cardiac arrest, cause unspecified (principal); E11.9 Type 2 diabetes mellitus without complications
CPT/HCPCS: 92950; 99285